=== PATIENT | female | born 1990 | race Caucasian/White ===

== ENCOUNTER 2016-12-28 02:01 | Emergency (ER) | payer MEDICAID ==
[~2016-12-28] VITALS: Ht 170.2 cm; Wt 117.9 kg
--- NOTE | 2016-12-28 02:01 | NUR ---
PT BIB [facility], PREBOOK. TAKEN TO OF
[2016-12-28 02:08] VITALS: BP 116/67
--- NOTE | 2016-12-28 02:16 | NUR ---
Mahnaz dempsey in ED - 12/28/[address] Barrera evaluating patient
--- NOTE | 2016-12-28 02:16 | NUR ---
Patient being evaluated by physician in overflow
[2016-12-28 02:27] VITALS: BP 116/67
--- NOTE | 2016-12-28 02:27 | NUR ---
PATIENT BIB [facility] [facility]. PATIENT EXAMINED BY DR. MOON. PATIENT MEDICALLY CLEARED AND RELEASED IN CUSTODY IN STABLE CONDITION. ORIGINAL PRE-BOOK FORM GIVEN TO OFFICER. Patient discharged with v/s stable. Written and verbal after care instructions given and explained. Patient verbalized understanding. Ambulatory with steady gait. All questions addressed prior to discharge. Advised to follow up with PMD.
== END 2016-12-28 02:27 ==
LOC: MED 02:01
DX: Z02.89 Encounter for other administrative examinations (principal); V49.49XA Driver injured in collision with other motor vehicles in traffic accident, initial encounter; Y93.89 Activity, other specified; Y92.488 Other paved roadways as the place of occurrence of the external cause; Y99.8 Other external cause status
CPT/HCPCS: 99283